=== PATIENT | female | born 1955 | race Caucasian/White ===

== ENCOUNTER 2022-02-04 20:10 | Emergency (ER) | payer MEDICAID ==
[~2022-02-04] VITALS: Ht 157.5 cm; Wt 56.0 kg
[2022-02-04 21:10] VITALS: BP 127/70
== END 2022-02-05 03:20 | disposition home or self-care (01) ==
LOC: ER 20:10
DX: N64.4 Mastodynia (principal); Z88.0 Allergy status to penicillin; Z96.649 Presence of unspecified artificial hip joint; Z98.890 Other specified postprocedural states
CPT/HCPCS: 76641; 93005; 99284